=== PATIENT | male | born 1985 | race Caucasian/White ===

== ENCOUNTER 2024-04-14 18:37 | Emergency (ER) | payer SELFPAY ==
[2024-04-14 18:47] VITALS: BP 180/98; PULSE 105; RESP 18; TEMP 36.7; O2SAT 97; BMI 32.5
--- NOTE | 2024-04-14 19:04 | W.ED.EXTPRO ---
Documented by User: CORNELIO Esquivel 04/14/24 19:08 HPI - Extremity Problem General: Chief complaint: Extremity Problem,Nontraumatic Stated complaint: Left Foot Bleeding Time Seen by Provider: 04/14/24 18:50 Source: patient Mode of arrival: ambulatory Limitations: no limitations History of Present Illness: Patient is a 39-year-old male presenting to the emergency department complaining of left lower extremity bleeding onset today. Patient notes that around 1500, he picked a bug bite and began having projectile bleeding from the distal third of his left lower extremity. He states he immediately covered the wound with napkins and wrapped just approximately with a belt to act as a tourniquet. He has never had anything like this happen before. He denies any pain. Upon removal of bandages in the emergency department, there appears to be area of clotting over a very small pinpoint wound, consistent with a bleeding varicose vein. He has surrounding varicosities, notes that he does not know of any time he has been told he has varicose veins. He does note that he is very sedentary, currently only takes blood pressure medications. No other symptoms noted, including calf pain, chest pain, breathing difficulties, or palpitations. He is not on blood thinners. MD Complaint: other (Bleeding from left lower extremity) Onset (ago): hour(s) Pain Consistency: now resolved Location: left Associated symptoms: Deny chest pain, fever(s) or rash Review of Systems General: Reports: 10 or more systems reviewed and unremarkable except in HPI and below Const: Denies: fever(s), chills or fatigue Eyes: Denies: change in vision ENMT: Denies: throat pain, ear or mastoid pain or nasal discharge Card: Denies: chest pain, palpitations, swelling of feet/ankles or lightheadedness Resp: Denies: dyspnea, productive cough or wheezing GI: Denies: abdominal pain, nausea, vomiting, diarrhea or constipation : Denies: flank pain, difficulty urinating, dysuria or urinary frequency Musc: Reports: other (Bleeding from left lower extremity); Denies: neck pain, back pain or joint pain Skin/Breast: Denies: rash Neuro: Denies: headache(s), numbness in extremities or weakness in extremities Physical Exam Const: COMMON NORMALS: no acute distress, patient oriented x3 and no limitations GENERAL APPEARANCE: cooperative, comfortable and well developed ORIENTATION/CONSCIOUSNESS: Yes awake, Yes oriented to person, Yes oriented to place and Yes oriented to time HENMT: COMMON NORMALS: normocephalic, atraumatic and hearing grossly normal bilaterally HEAD & SCALP: normocephalic and atraumatic Eye: COMMON NORMALS: Equal, round and reactive pupils present, EOMs intact bilaterally and conjunctivae normal CONJUNCTIVA: Yes conjunctivae normal PUPIL: Yes Equal, round and reactive pupils present Neck/C-Spine: COMMON NORMALS: full ROM, supple and no JVD Resp: COMMON NORMALS: normal respiratory effort, No retractions, No use of accessory muscles and clear to auscultation bilaterally AUSCULTATION: clear to auscultation bilaterally Cardio: COMMON NORMALS: no JVD, regular rate, regular rhythm, No clicks present (Cardio), No murmurs present (Cardio) and No rub (Cardio) RATE: regular rate RHYTHM: regular rhythm Extremity: NARRATIVE EXTREMITY EXAM: Patient arrives with left lower extremity covered in napkins, wrapped in socks, with a proximal tourniquet. Upon removal, no active bleeding noted, but there is evidence of a small pinpoint lesion lying directly over a varicose vein. Other surrounding varicose veins noted. Left lower extremity is nontender to palpation with full range of motion. Neuro: COMMON NORMALS: patient oriented x3, moves all extremities, no focal motor deficits and no sensory deficits noted SENSORIUM/ORIENTATION: Yes oriented to person, Yes oriented to place and Yes oriented to time Psych: COMMON NORMALS: mental status grossly normal and Normal thought process present THOUGHT PROCESS: Normal thought process present Course Vital Signs: Vital signs: Vital Signs Temperature 98.1 F 04/14/24 18:47 Pulse Rate 105 H 04/14/24 18:47 Respiratory Rate 18 04/14/24 18:47 Blood Pressure 180/98 04/14/24 18:47 Pulse Oximetry 97 04/14/24 18:47 Oxygen Delivery Me thod Room Air 04/14/24 18:47 MDM - Extremity (Nontraumatic) Medical Decision Making Patient presents with no active bleeding, as he states left lower extremity began bleeding after picking a bug bite. Upon inspection it is evident that patient picked a superficial vein that caused it to bleed profusely, though this is controlled in the emergency department. I had a thorough discussion with the patient in regards to handling varicose veins, which include elevating the extremities and using compression stockings. Currently we will apply another pressure bandage and send him home with these instructions for further management. Informed him to follow-up with primary care for any further evaluation, and return if he has any new or concerning symptoms. Patient agrees with this plan and will be discharged home at this time. No radiology studies performed this visit Discharge Plan Discharge Patient Disposition: Home Clinical Impression: Bleeding from varicose vein Condition: Stable Discharge Orders: Discharge ED (Routine); Ordered 04/14/24 Ordered By: Duglas Tamayo Discharge Diet: Usual diet Discharge Activity: Increase activity as tolerated Patient Instructions: Varicose Veins Activity Restrictions/Additional Instructions: Compression stockings as discussed. Elevate legs. Apply compression bandage currently for any bleeding. Continue blood pressure medications at home. Return for any new or concerning symptoms. Follow-up with primary care. Coding Level of Care Code ED Buggy Ladle Tender for Chg Fwd Documented by User: Isaac Bradley DO 04/15/24 07:08 HPI - Extremity Problem General: Chief complaint: Extremity Problem,Nontraumatic Stated complaint: Left Foot Bleeding Time Seen by Provider: 04/14/24 18:50 Course Vital Signs: Vital signs: Vital Signs Temperature 98.1 F 04/14/24 18:47 Pulse Rate 105 H 04/14/24 18:47 Respiratory Rate 18 04/14/24 18:47 Blood Pressure 180/98 04/14/24 18:47 Pulse Oximetry 97 04/14/24 18:47 Oxygen Delivery Me thod Room Air 04/14/24 18:47 MDM - Extremity (Nontraumatic) Medical Decision Making Patient presents with no active bleeding, as he states left lower extremity began bleeding after picking a bug bite. Upon inspection it is evident that patient picked a superficial vein that caused it to bleed profusely, though this is controlled in the emergency department. I had a thorough discussion with the patient in regards to handling varicose veins, which include elevating the extremities and using compression stockings. Currently we will apply another pressure bandage and send him home with these instructions for further management. Informed him to follow-up with primary care for any further evaluation, and return if he has any new or concerning symptoms. Patient agrees with this plan and will be discharged home at this time. Chart reviewed Discharge Plan Discharge Patient Disposition: Home Clinical Impression: Bleeding from varicose vein Condition: Stable Discharge Orders: Discharge ED (Routine); Ordered 04/14/24 Ordered By: Duglas Tamayo Discharge Diet: Usual diet Discharge Activity: Increase activity as tolerated Patient Instructions: Varicose Veins Activity Restrictions/Additional Instructions: Compression stockings as discussed. Elevate legs. Apply compression bandage currently for any bleeding. Continue blood pressure medications at home. Return for any new or concerning symptoms. Follow-up with primary care. Coding Level of Care Code ED Buggy Ladle Tender for Aimee Trevino
== END 2024-04-14 19:18 | disposition home or self-care (01) ==
PROVIDERS: Emergency Provider Physician Assistant
DX: I83.892 Varicose veins of left lower extremity with other complications (principal)
CPT/HCPCS: 99282